=== PATIENT | female | born 1965 ===

== ENCOUNTER 2017-02-07 07:12 | Observation (INO) | payer BC ==
[2017-02-07 07:23] VITALS: BMI 43.5
--- NOTE | 2017-02-07 07:55 | ED PDOC ---
HPI: Chest Pain Time Seen by Provider: 02/07/17 07:27 Chief Complaint (Nursing): Dizziness/Lightheaded Chief Complaint (Provider): Dizziness/Lightheaded History Per: Patient History/Exam Limitations: no limitations Onset/Duration Of Symptoms: Days (x2) Current Symptoms Are (Timing): Still Present Additional Complaint(s): Rafaela is a 51 y/o female with a past medical history of hypertension, who presents to the ED complaining of dizziness and chest pain, onset last night. Reports driving home from work yesterday when she had sudden onset of lightheadedness and diaphoresis. Woke up this morning with a headache, chest pain, and similar lightheadedness. Patient found her blood pressure to be high, prompting ED visit. Reports negative stress test within the last 10 years. Patient took 81mg aspirin this morning PMD: Henry Wellington MD Assembler Adjuster: Agapito Moncada MD - Risk Factors TAD Risk Factors: Pos: Hypertension Past Medical History Reviewed: Historical Data, Nursing Documentation, Vital Signs Vital Signs: Last Vital Signs Temp 97.9 F 02/07/17 07:22 Pulse 63 02/07/17 07:22 Resp 16 02/07/17 07:22 BP 149/86 02/07/17 07:22 Pulse Ox 98 02/07/17 09:39 - Medical History PMH: HTN - Family History Family History: States: Unknown Family Hx - Home Medications Home Medications: Ambulatory Orders Medication Instructions Recorded Atenolol [Tenormin] 50 mg PO DAILY 02/07/17 - Allergies Allergies/Adverse Reactions: Allergies Allergy/AdvReac Type Severity Reaction Status Date / Time No Known Allergies Allergy Verified 02/07/17 07:28 Review of Systems ROS Statement: Except As Marked, All Systems Reviewed And Found Negative Constitutional: Negative for: Fever, Chills Cardiovascular: Positive for: Chest Pain, Light Headedness, Other (Diaphoresis) Respiratory: Negative for: Cough, Shortness of Breath Gastrointestinal: Negative for: Nausea, Vomiting, Abdominal Pain Musculoskeletal: Negative for: Back Pain Neurological: Positive for: Dizziness Physical Exam - Reviewed Nursing Documentation Reviewed: Yes Vital Signs Reviewed: Yes - Physical Exam Appears: Positive for: Non-toxic, No Acute Distress Head Exam: Positive for: ATRAUMATIC, NORMAL INSPECTION, NORMOCEPHALIC Skin: Positive for: Normal Color, Warm, Dry Eye Exam: Positive for: EOMI, Normal appearance, PERRL Neck: Positive for: Normal, Painless ROM, Supple Cardiovascular/Chest: Positive for: Regular Rate, Rhythm, Chest Non Tender. Negative for: Murmur Respiratory: Positive for: Normal Breath Sounds. Negative for: Accessory Muscle Use, Respiratory Distress Gastrointestinal/Abdominal: Positive for: Normal Exam, Soft. Negative for: Tenderness, Distended Back: Positive for: Normal Inspection. Negative for: L CVA Tenderness, R CVA Tenderness Extremity: Positive for: Normal ROM. Negative for: Pedal Edema, Calf Tenderness , Deformity Neurologic/Psych: Positive for: Alert, Oriented. Negative for: Motor/Sensory Deficits - Laboratory Results Result Diagrams: 02/07/17 07:55 02/07/17 07:55 - ECG O2 Sat by Pulse Oximetry: 98 (RA) Pulse Ox Interpretation: Normal Medical Decision Making Medical Decision Making: Time: 7:46 Initial Plan: --EKG --Labs ordered including cardiac enzymes --CXR --Given Aspirin, 243 mg PO --Pending reevaluation EKG shows NSR at 66bpm with T wave inversions in v1-v4 with no prior for comparison Time: 9:19 --Paged Dr. 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 Time: 9:26 Chest X-Ray: FINDINGS: LUNGS: No active pulmonary disease. PLEURA: No significant pleural effusion identified, no pneumothorax apparent. CARDIOVASCULAR: Normal. OSSEOUS STRUCTURES: No significant abnormalities. VISUALIZED UPPER ABDOMEN: Normal. OTHER FINDINGS: None. IMPRESSION: No active disease. --Dr. Moncada wants admission as Telemetry Observation under hospitalist Time: 9:36 --Patient admitted for chest pain and diaphoresis, under the service of Dr. Craft Scribe Attestation: Documented by Ann Marie Urrutia, acting as a scribe for Shira Strauss MD Provider Scribe Attestation: All medical record entries made by the Scribe were at my direction and personally dictated by me. I have reviewed the chart and agree that the record accurately reflects my personal performance of the history, physical exam, medical decision making, and the department course for this patient. I have also personally directed, reviewed, and agree with the discharge instructions and disposition. Disposition - Clinical Impression Clinical Impression: Chest pain, Diaphoresis, Lightheaded - Patient ED Disposition Is Patient to be Admitted: Yes - Disposition Disposition Time: 09:36 Condition: FAIR - Pt Status Changed To: Hospital Disposition Of: Observation
[2017-02-07 08:14] LABS: BASO # 0.1 K/uL (0.0-0.2); BASO % 0.6 % (0.0-2.0); EOS # 0.4 K/uL (0.0-0.7); HEMATOCRIT 41.3 % (34.0-47.0); LYMPH # 1.7 K/uL (1.0-4.3); MEAN CELL VOLUME 93.2 fl (81.0-99.0); MEAN CORPUSCULAR HEMOGLOBIN 31.5 pg (27.0-31.0); MEAN CORPUSCULAR HGB CONC 33.8 g/dL (33.0-37.0); MEAN PLATELET VOLUME 11.2 fl (7.2-11.7); MONO # 0.7 K/uL (0.0-0.8); MONO % 7.1 % (0.0-10.0); NEUT # 6.3 K/uL (1.8-7.0); NEUT % 69.3 % (50.0-75.0); NRBC % 0.2 % (0.0-0.0); RED CELL DISTRIBUTION WIDTH 13.6 % (11.5-14.5); WHITE BLOOD COUNT 9.1 K/uL (4.8-10.8)
[2017-02-07 08:16] LABS: ALB/GLOB RATIO 1.3 (1.0-2.1); ALKALINE PHOSPHATASE 70 U/L (38-126); ALT/SGPT 27 U/L (9-52); AST/SGOT 43 U/L (14-36); BILIRUBIN,TOTAL 1.3 mg/dl (0.2-1.3); BLOOD UREA NITROGEN 15 mg/dl (7-17); CALCIUM 8.9 mg/dL (8.4-10.2); CARBON DIOXIDE 21 mmol/L (22-30); CHLORIDE 107 mmol/L (98-107); GFR AFRICAN-AMERICAN > 60; GLUCOSE,RANDOM 108 mg/dL (65-105); MAGNESIUM 1.9 MG/DL (1.6-2.3); PHOSPHOROUS 3.6 mg/dl (2.5-4.5); SODIUM 137 mmol/l (132-148); TOTAL PROTEIN 7.6 G/DL (6.3-8.2)
[2017-02-07 08:18] LABS: POTASSIUM 5.1 MMOL/L (3.6-5.0)
--- NOTE | 2017-02-07 09:27 | RAD ---
HISTORY: chest pain COMPARISON: 12/16/2009 FINDINGS: LUNGS: No active pulmonary disease. PLEURA: No significant pleural effusion identified, no pneumothorax apparent. CARDIOVASCULAR: Normal. OSSEOUS STRUCTURES: No significant abnormalities. VISUALIZED UPPER ABDOMEN: Normal. OTHER FINDINGS: None. IMPRESSION: No active disease.
--- NOTE | 2017-02-07 11:24 | CP.PCM.HP ---
History of Present Illness - History of Present Illness History of Present Illness: 51 yo female with history of Obesity and HTN claimed she has been having on and off headache, neck/shoulder pain, dizziness and cold sweat for about a week. Yesterday she reported having on and off mild left sided chest pain radiating to her neck accompanied with elevation in her BP. Denied having diaphoresis with chest pain. Present on Admission - Present on Admission Any Indicators Present on Admission: No History of DVT/PE: No History of Uncontrolled Diabetes: No Urinary Catheter: No Decubitus Ulcer Present: No Review of Systems - Review of Systems All systems: reviewed and no additional remarkable complaints except (aside from those mentioned above, 12 point system review were negative by me) Past Patient History - Tetanus Immunizations Tetanus Immunization: Unknown - Past Medical History & Family History Past Family History: Reviewed and not pertinent - Past Social History Smoking Status: Never Smoked Alcohol: None Drugs: Denies Home Situation {Lives}: With Family - CARDIAC Hx Cardiac Disorders: Yes Hx Hypertension: Yes - PULMONARY Hx Respiratory Disorders: No - NEUROLOGICAL Hx Neurological Disorder: No - HEENT Hx HEENT Problems: No - RENAL Hx Chronic Kidney Disease: No - ENDOCRINE/METABOLIC Hx Endocrine Disorders: No - HEMATOLOGICAL/ONCOLOGICAL Hx Blood Disorders: No - INTEGUMENTARY Hx Dermatological Problems: No - MUSCULOSKELETAL/RHEUMATOLOGICAL Hx Musculoskeletal Disorders: No - GASTROINTESTINAL Hx Gastrointestinal Disorders: No - GENITOURINARY/GYNECOLOGICAL Hx Genitourinary Disorders: No - PSYCHIATRIC Hx Psychophysiologic Disorder: No Hx Substance Use: No - SURGICAL HISTORY Hx Breast Biopsy: Yes (rt breast 2x) Hx Tubal Ligation: Yes - ANESTHESIA Hx Anesthesia: Yes Hx Anesthesia Reactions: No Meds Allergies/Adverse Reactions: Allergies Allergy/AdvReac Type Severity Reaction Status Date / Time No Known Allergies Allergy Verified 02/07/17 07:28 Physical Exam - Constitutional Appears: No Acute Distress - Head Exam Head Exam: ATRAUMATIC - Eye Exam Eye Exam: absent: Scleral icterus - ENT Exam ENT Exam: Mucous Membranes Moist - Neck Exam Neck exam: Negative for: Meningismus - Respiratory Exam Respiratory Exam: absent: Chest Wall Tenderness, Rhonchi, Wheezes, Respiratory Distress - Cardiovascular Exam Cardiovascular Exam: REGULAR RHYTHM, +S1, +S2 - GI/Abdominal Exam GI & Abdominal Exam: Soft. absent: Tenderness - Rectal Exam Rectal Exam: Deferred - Extremities Exam Extremities exam: Negative for: calf tenderness, pedal edema - Neurological Exam Neurological exam: Alert, Oriented x3 - Psychiatric Exam Psychiatric exam: Normal Affect - Skin Skin Exam: Dry, Intact Results - Vital Signs Recent Vital Signs: Last Vital Signs Temp 97.9 F 02/07/17 07:22 Pulse 63 02/07/17 07:22 Resp 16 02/07/17 07:22 BP 149/86 02/07/17 07:22 Pulse Ox 98 02/07/17 10:33 - Labs Result Diagrams: 02/07/17 07:55 02/07/17 07:55 Assessment & Plan (1) Chest pain Status: Acute Comment: place on observation in telemetry. serial Troponin and EKG. continue Atenolol. ASA 81mg PO daily. cardilogy consult with Dr Moncada (2) HTN (hypertension) Status: Acute Comment: BP stable. continue Atenolol 50mg PO daily (3) DVT prophylaxis Status: Acute Comment: Lovenox 40mg SC daily
--- NOTE | 2017-02-07 17:34 | CARD ---
APPROVED REPORT EKG Measurement Heart [id number] <Conclusion> Normal sinus rhythm Poor R wave progression V2 to V3 ST & T wave abnormality, consider inferior ischemia Abnormal ECG
--- NOTE | 2017-02-07 19:55 | CP.PCM.CON ---
History of Present Illness - History of Present Illness History of Present Illness: THE PATIENT IS A 51 YEAR OLD FEMALE WITH A HISTORY OF HYPERTENSION, CHEST WALL SYNDROME, T WAVE INVERSIONS ON HER EKG, MIGRAINE HEADACHES AND SHE IS OVERWEIGHT. SHE HAS BEEN ADMITTED TO [facility] IN THE PAST FOR CHEST PAIN AND HER STRESS TESTS WERE NEGATIVE BUT THE LAST ONE WAS SOME YEARS AGO. SHE NOW STATES THAT SHE WAS DIZZY ON AND OFF FOR A FEW DAYS AND WAS VERY DIZZY DRIVING HOME FROM WORK YESTERDAY. SHE ALSO HAD SOME CHEST TIGHTNESS YESTERDAY AND THIS MORNING WITH SOME NECK RADIATION. SHE CAME TO THE ER WHERE HER BLOOD PRESSURE WAS FOUND TO BE HIGH. SHE IS CHEST PAIN FREE NOW. IT WAS DECIDED TO ADMIT HER TO OBSERVATION FOR SERIAL EKGS AND TROPONINS. Past Patient History - Tetanus Immunizations Tetanus Immunization: Unknown - Past Medical History & Family History Past Medical History?: Yes - Past Social History Smoking Status: Never Smoked - CARDIAC Hx Cardiac Disorders: Yes - PULMONARY Hx Respiratory Disorders: No - NEUROLOGICAL Hx Neurological Disorder: No - HEENT Hx HEENT Problems: No - RENAL Hx Chronic Kidney Disease: No - ENDOCRINE/METABOLIC Hx Endocrine Disorders: No - HEMATOLOGICAL/ONCOLOGICAL Hx Blood Disorders: No - INTEGUMENTARY Hx Dermatological Problems: No - MUSCULOSKELETAL/RHEUMATOLOGICAL Hx Musculoskeletal Disorders: No Hx Falls: No - GASTROINTESTINAL Hx Gastrointestinal Disorders: No - GENITOURINARY/GYNECOLOGICAL Hx Genitourinary Disorders: No - PSYCHIATRIC Hx Psychophysiologic Disorder: No Hx Substance Use: No - SURGICAL HISTORY Hx Surgeries: Yes Hx Breast Biopsy: Yes (rt breast 2x) Hx Tubal Ligation: Yes - ANESTHESIA Hx Anesthesia: Yes Hx Anesthesia Reactions: No Meds Allergies/Adverse Reactions: Allergies Allergy/AdvReac Type Severity Reaction Status Date / Time No Known Allergies Allergy Verified 02/07/17 07:28 - Medications Medications: Current Medications Acetaminophen (Tylenol 325mg Tab) 650 mg PO Q6 PRN PRN Reason: Headache Aspirin (Aspirin Chewable) 81 mg PO DAILY [facility] Atenolol (Tenormin) 50 mg PO DAILY [facility] Enoxaparin Sodium (Lovenox) 40 mg SC DAILY [facility] PRN Reason: Protocol Famotidine (Pepcid) 20 mg PO BID [facility] Last Admin: 02/07/17 17:52 Dose: 20 mg Morphine Sulfate (Morphine) 2 mg IVP Q4 PRN PRN Reason: chest pain Nitroglycerin (Nitrostat Sl Tab) 0.4 mg SL Q5M PRN PRN Reason: chest pain Physical Exam - Respiratory Exam Respiratory Exam: Clear to Auscultation Bilateral - Cardiovascular Exam Cardiovascular Exam: REGULAR RHYTHM, +S1, +S2 - Extremities Exam Extremities exam: Positive for: normal inspection - Additional Findings Additional findings: EKG NSR, T WAVE INVERSIONS IN LIMB LEADS 3 AND F WELL CHEST LEADS TO V5 TORPONIN NEGATIVE Results - Vital Signs Recent Vital Signs: Last Vital Signs Temp 97.7 F 02/07/17 18:45 Pulse 65 02/07/17 18:45 Resp 20 02/07/17 18:45 BP 126/79 02/07/17 18:45 Pulse Ox 99 02/07/17 18:45 - Labs Result Diagrams: 02/07/17 07:55 02/07/17 07:55 Labs: Laboratory Results - last 24 hr 02/07/17 16:10 Troponin I < 0.0120 Assessment & Plan - Assessment and Plan (Free Text) Assessment: CHEST PAIN WITH ABNORMAL EKG HYPERTENSION OVERWEIGHT Plan: THE PATIENT WILL BE ADMITTED TO ON TELEMETRY SERIAL EKGS AND TROPONINS ECHOCARDIOGRAM PHARMACOLOGICAL STRESS TEST
[2017-02-08 06:27] LABS: BLOOD UREA NITROGEN 14 mg/dl (7-17); CALCIUM 8.9 mg/dL (8.4-10.2); CARBON DIOXIDE 23 mmol/L (22-30); CHLORIDE 106 mmol/L (98-107); CHOLESTEROL 167 mg/dL (0-199); GFR AFRICAN-AMERICAN > 60; GLUCOSE,RANDOM 103 mg/dL (65-105); POTASSIUM 4.4 MMOL/L (3.6-5.0); SODIUM 139 mmol/l (132-148)
[2017-02-08 06:45] LABS: BASO # 0.1 K/uL (0.0-0.2); BASO % 0.7 % (0.0-2.0); EOS # 0.3 K/uL (0.0-0.7); EOS % 4.5 % (0.0-4.0); HEMATOCRIT 40.6 % (34.0-47.0); LYMPH # 2.2 K/uL (1.0-4.3); LYMPH % 28.6 % (20.0-40.0); MEAN CELL VOLUME 93.5 fl (81.0-99.0); MEAN CORPUSCULAR HEMOGLOBIN 30.9 pg (27.0-31.0); MEAN PLATELET VOLUME 10.8 fl (7.2-11.7); MONO # 0.5 K/uL (0.0-0.8); MONO % 6.6 % (0.0-10.0); NEUT # 4.5 K/uL (1.8-7.0); NEUT % 59.6 % (50.0-75.0); NRBC % 0.5 % (0.0-0.0); RED CELL DISTRIBUTION WIDTH 13.5 % (11.5-14.5); WHITE BLOOD COUNT 7.6 K/uL (4.8-10.8)
[2017-02-08] MEDS ORDERED: Enoxaparin 40 mg Syringe SC SCH (09:00)
--- NOTE | 2017-02-08 09:23 | CP.PCM.PN ---
Subjective - Date & Time of Evaluation Date of Evaluation: 02/08/17 Time of Evaluation: 08:15 - Subjective Subjective: NO CHEST PAIN OR SOB FEELS BETTER THIS MORNING Objective - Vital Signs/Intake and Output Vital Signs (last 24 hours): Temp Pulse Resp BP Pulse Ox 97.5 F L 56 L 20 128/84 98 02/08/17 08:00 02/08/17 09:01 02/08/17 08:00 02/08/17 09:01 02/08/17 08:00 Intake and Output: 02/08/17 02/08/17 06:59 18:59 Intake Total 450 Balance 450 - Medications Medications: Current Medications Acetaminophen (Tylenol 325mg Tab) 650 mg PO Q6 PRN PRN Reason: Headache Last Admin: 02/07/17 20:39 Dose: 650 mg Aspirin (Aspirin Chewable) 81 mg PO DAILY REPLACED BY [facility] Last Admin: 02/08/17 09:02 Dose: Not Given Atenolol (Tenormin) 50 mg PO DAILY REPLACED BY [facility] Last Admin: 02/08/17 09:01 Dose: Not Given Enoxaparin Sodium (Lovenox) 40 mg SC DAILY REPLACED BY [facility] PRN Reason: Protocol Last Admin: 02/08/17 09:02 Dose: 40 mg Famotidine (Pepcid) 20 mg PO BID REPLACED BY [facility] Last Admin: 02/08/17 09:01 Dose: Not Given Morphine Sulfate (Morphine) 2 mg IVP Q4 PRN PRN Reason: chest pain Nitroglycerin (Nitrostat Sl Tab) 0.4 mg SL Q5M PRN PRN Reason: chest pain - Labs Labs: 02/08/17 06:05 02/08/17 06:05 - Respiratory Exam Respiratory Exam: Clear to Ausculation Bilateral - Cardiovascular Exam Cardiovascular Exam: REGULAR RHYTHM, +S1, +S2 - Extremities Exam Extremities Exam: Normal Inspection - Additional Findings 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
[2017-02-08] MEDS ORDERED: Perflutren Lipid Microsphere 1.5 ML SUS IV ONE (11:19)
[2017-02-08] MEDS ORDERED: Aminophylline 25 mg/ml Inj ONE (11:55)
--- NOTE | 2017-02-08 12:12 | CARD ---
APPROVED REPORT EXAM: Two-dimensional and M-mode echocardiogram with Doppler, color Doppler with contrast. Other Information Quality : GoodRhythm : NSR INDICATION Hypertension/HCVD Chest Pain Echo Enhancing Agent Indication: Endocardial border delineation Agent/Amount Used: Definity 2D DIMENSIONS IVSd0.70 (0.7-1.1cm)LVDd4.72 (3.9-5.9cm) LVOT Diameter1.99 (1.8-2.4cm)PWd0.86 (0.7-1.1cm) IVSs1.02 (0.8-1.2cm)LVDs3.52 (2.5-4.0cm) FS (%) 25.5 %PWs1.09 (0.8-1.2cm) M-Mode DIMENSIONS Left Atrium (MM)4.59 (2.5-4.0cm)IVSd0.81 (0.7-1.1cm) Aortic Root2.75 (2.2-3.7cm)LVDd5.44 (4.0-5.6cm) Aortic Cusp Exc.1.75 (1.5-2.0cm)PWd0.88 (0.7-1.1cm) IVSs1.03 cmFS (%) 28 % LVDs3.94 (2.0-3.8cm)PWs1.13 cm Mitral Valve MV E Mxytmrer73.4cm/sMV DECEL [id number] A Njzwykcv92.9cm/s MV HDV55icT/A ratio1.4MVA (PHT)3.42cm2 TDI Lateral E' Peak V15.32cm/sMedial E' Peak V9.13cm/sE/Lateral E'2.6 E/Medial E'4.4 Pulmonary Valve PV Peak Pzkrwlwm194.3cm/s Tricuspid Valve TR Peak Zdvqfkvf716ty/sRAP GEIJVAFA55ycRwRS Peak Gr.13mmHg CXBQ40odCm LEFT VENTRICLE The left ventricle is normal size. There is normal left ventricular wall thickness. Left ventricle systolic function is normal. The Ejection Fraction is 60-65%. There is normal LV segmental wall motion. The left ventricular diastolic function is normal. There is no mass noted in the left ventricle. RIGHT VENTRICLE The right ventricle is normal size. There is normal right ventricular wall thickness. The right ventricular systolic function is normal. ATRIA The left atrium size is normal. The right atrium size is normal. AORTIC VALVE The aortic valve is normal in structure and function. No aortic regurgitation is present. There is no aortic valvular stenosis. MITRAL VALVE The mitral valve is normal in structure. There is no evidence of mitral valve prolapse. There is no mitral valve stenosis. Mitral regurgitation is trace. TRICUSPID VALVE The tricuspid valve is normal in structure. There is trace tricuspid regurgitation. Right ventricular systolic pressure is estimated at 23 mmHg. There is no pulmonary hypertension. PULMONIC VALVE The pulmonary valve is normal in structure and function. There is no pulmonic valvular regurgitation. GREAT VESSELS The aortic root is normal in size. Due to poor image quality, the IVC could not be assessed. PERICARDIAL EFFUSION The pericardium appears normal. <Conclusion> Echo enhancement was used to delineate endocardial surface and to evaluate LV wall motion and rule out intracardiac masses. The left ventricle is normal size. There is normal left ventricular wall thickness. There is normal LV segmental wall motion. Left ventricle systolic function is normal. The Ejection Fraction is 60-65%. The left ventricular diastolic function is normal.
--- NOTE | 2017-02-08 14:07 | CP.PCM.DIS ---
Provider - Provider Date of Admission: 02/07/17 09:36 Attending physician: Gabriel Craft MD Consults: Dr Moncada Time Spent in preparation of Discharge (in minutes): 25 Diagnosis - Discharge Diagnosis (1) Chest pain Status: Acute Comment: improved (2) HTN (hypertension) Status: Acute Comment: BP stable. continue Atenolol Hospital Course - Lab Results Lab Results: Most Recent Lab Values WBC 7.6 K/uL (4.8-10.8) 02/08/17 06:05 RBC 4.34 Mil/uL (3.80-5.20) 02/08/17 06:05 Hgb 13.4 g/dL (12.0-16.0) 02/08/17 06:05 Hct 40.6 % (34.0-47.0) 02/08/17 06:05 MCV 93.5 fl (81.0-99.0) 02/08/17 06:05 MCH 30.9 pg (27.0-31.0) 02/08/17 06:05 MCHC 33.0 g/dL (33.0-37.0) 02/08/17 06:05 RDW 13.5 % (11.5-14.5) 02/08/17 06:05 Plt Count 194 K/uL (130-400) 02/08/17 06:05 MPV 10.8 fl (7.2-11.7) 02/08/17 06:05 Neut % (Auto) 59.6 % (50.0-75.0) 02/08/17 06:05 Lymph % (Auto) 28.6 % (20.0-40.0) 02/08/17 06:05 Spencer % (Auto) 6.6 % (0.0-10.0) 02/08/17 06:05 Eos % (Auto) 4.5 % (0.0-4.0) H 02/08/17 06:05 Baso % (Auto) 0.7 % (0.0-2.0) 02/08/17 06:05 Neut # 4.5 K/uL (1.8-7.0) 02/08/17 06:05 Lymph # 2.2 K/uL (1.0-4.3) 02/08/17 06:05 Spencer # 0.5 K/uL (0.0-0.8) 02/08/17 06:05 Eos # 0.3 K/uL (0.0-0.7) 02/08/17 06:05 Baso # 0.1 K/uL (0.0-0.2) 02/08/17 06:05 Sodium 139 mmol/l (132-148) 02/08/17 06:05 Potassium 4.4 MMOL/L (3.6-5.0) 02/08/17 06:05 Chloride 106 mmol/L (98-107) 02/08/17 06:05 Carbon Dioxide 23 mmol/L (22-30) 02/08/17 06:05 Anion Gap 15 (10-20) 02/08/17 06:05 BUN 14 mg/dl (7-17) 02/08/17 06:05 Creatinine 0.8 mg/dL (0.7-1.2) 02/08/17 06:05 Est GFR ( Amer) > 60 02/08/17 06:05 Est GFR (Non-Af Amer) > 60 02/08/17 06:05 POC Glucose (mg/dL) 112 mg/dL (65-110) H 02/07/17 07:27 Random Glucose 103 mg/dL (65-105) 02/08/17 06:05 Calcium 8.9 mg/dL (8.4-10.2) 02/08/17 06:05 Phosphorus 3.6 mg/dl (2.5-4.5) 02/07/17 07:55 Magnesium 1.9 MG/DL (1.6-2.3) 02/07/17 07:55 Total Bilirubin 1.3 mg/dl (0.2-1.3) 02/07/17 07:55 AST 43 U/L (14-36) H 02/07/17 07:55 ALT 27 U/L (9-52) 02/07/17 07:55 Alkaline Phosphatase 70 U/L (38-126) 02/07/17 07:55 Total Creatine Kinase 71 U/L (30-135) 02/07/17 07:55 CK-MB (Mass) 0.61 ng/mL (0.0-3.38) 02/07/17 07:55 Troponin I < 0.0120 ng/mL (0.00-0.120) 02/08/17 00:10 Total Protein 7.6 G/DL (6.3-8.2) 02/07/17 07:55 Albumin 4.3 g/dL (3.5-5.0) 02/07/17 07:55 Globulin 3.3 gm/dL (2.2-3.9) 02/07/17 07:55 Albumin/Globulin Ratio 1.3 (1.0-2.1) 02/07/17 07:55 Triglycerides 81 mg/DL (0-149) 02/08/17 06:05 Cholesterol 167 mg/dL (0-199) 02/08/17 06:05 LDL Cholesterol Direct 103 mg/dL (0-129) 02/08/17 06:05 HDL Cholesterol 40 MG/DL (30-70) 02/08/17 06:05 - Hospital Course Hospital Course: 51 yo female with history of Obesity and HTN claimed she has been having on and off headache, neck/shoulder pain, dizziness and cold sweat for about a week and on and off chest pain the day prior to observation. The patient felt better once admitted and had no recurrence of the chest pain. Serial Troponins and ekg were negative for ischemia. Patient was discharged in stable condition. Discharge Exam - Head Exam Head Exam: ATRAUMATIC - Eye Exam Eye Exam: Normal appearance - ENT Exam ENT Exam: Mucous Membranes Moist - Neck Exam Neck exam: Full Rom - Respiratory Exam Respiratory Exam: Clear to PA & Lateral - Cardiovascular Exam Cardiovascular Exam: REGULAR RHYTHM, +S1, +S2 - GI/Abdominal Exam GI & Abdominal Exam: Soft. absent: Tenderness - Rectal Exam Rectal Exam: Deferred - Neurological Exam Neurological exam: Alert, Oriented x3 - Psychiatric Exam Psychiatric exam: Normal Affect - Skin Skin Exam: Dry, Intact Discharge Plan - Follow Up Plan Condition: FAIR Disposition: HOME/ ROUTINE
[2017-02-08] MEDS ORDERED: Influenza Vaccine 18yr & older 0.5 ML/45 MCG SYR IM ONE (14:40)
[2017-02-08 15:44] VITALS: BP 136/85; PULSE 68; RESP 16; TEMP 97.8; O2SAT 97
== END 2017-02-08 15:50 | disposition home or self-care (01) ==
LOC: H.ER 07:12 → H.ERHOLD 09:36 → H.TEL 15:20
DX: R07.9 Chest pain, unspecified (principal); Z23 Encounter for immunization; E66.9 Obesity, unspecified; Z68.41 Body mass index [BMI] 40.0-44.9, adult; I10 Essential (primary) hypertension; R94.31 Abnormal electrocardiogram [ECG] [EKG]
CPT/HCPCS: 36415; 71010; 80048; 80053; 80061; 81025; 82550; 82553; 82948; 83735; 84100; 84484; 85025; 93005; 93306; 96372; 99285; G0008; G0378; J0280; J1650; J2785; Q2035